=== PATIENT | male | born 1970 | race Caucasian/White ===

== ENCOUNTER 2020-12-01 17:43 | Emergency (ER) | payer OTHER ==
[~2020-12-01] VITALS: Ht 170.2 cm; Wt 74.8 kg
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
[~2020-12-01 17:43] MED LIST: ATIVAN1 MG PO; COZAAR 25 MG TA25 M1 PO; XANAX 0.25 MG0.25 MG PO
[2020-12-01 21:00] VITALS: BP 195/128
== END 2020-12-01 21:30 | disposition home or self-care (01) ==
LOC: ER 17:43
DX: S01.81XA Laceration without foreign body of other part of head, initial encounter (principal); S01.111A Laceration without foreign body of right eyelid and periocular area, initial encounter; S01.411A Laceration without foreign body of right cheek and temporomandibular area, initial encounter; I10 Essential (primary) hypertension; F17.210 Nicotine dependence, cigarettes, uncomplicated; Z79.899 Other long term (current) drug therapy; Y08.89XA Assault by other specified means, initial encounter; Y93.89 Activity, other specified; Y92.89 Other specified places as the place of occurrence of the external cause; Y99.8 Other external cause status